=== PATIENT | male | born 1980 | race Asian ===

== ENCOUNTER 2017-10-26 12:32 | Emergency (ER) | payer BC, OTHER ==
[~2017-10-26] VITALS: Ht 177.8 cm; Wt 107.8 kg
[~2017-10-26 12:32] MED LIST: SUBO8MIS SL
[2017-10-26 12:45] VITALS: BP 153/107; PULSE 86; RESP 18; TEMP 98.4; O2SAT 97
[2017-10-26] MEDS ORDERED: HYDR-3516 PO (15:13)
[2017-10-26] MEDS ORDERED: subutex (15:13)
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
== END 2017-10-26 17:07 | disposition home or self-care (01) ==
LOC: PHED 12:32
DX: K40.90 Unilateral inguinal hernia, without obstruction or gangrene, not specified as recurrent (principal); I10 Essential (primary) hypertension; M54.9 Dorsalgia, unspecified; G89.29 Other chronic pain; F17.210 Nicotine dependence, cigarettes, uncomplicated
CPT/HCPCS: 99282

== ENCOUNTER 2017-11-07 16:17 | Emergency (ER) | payer OTHER ==
[~2017-11-07] VITALS: Ht 177.8 cm; Wt 106.0 kg
[~2017-11-07 16:17] MED LIST changes: +HYDR-3516 PO; -SUBO8MIS SL; +subutex
[2017-11-07 16:19] VITALS: BP 195/113; PULSE 93; RESP 18; TEMP 98.3; O2SAT 100
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
[2017-11-07] MEDS ORDERED: CLINDAMYCIN PHOS 900 MG/6 ML VIAL IM ONE (16:45)
[2017-11-07] MEDS ORDERED: CLIN150C14 PO (16:46)
[2017-11-07] MEDS ORDERED: SUBO8MIS SL (16:47)
[2017-11-07] MEDS ORDERED: CLINDAMYCIN PHOS 600 MG/4 ML VIAL IM ONE (17:00)
== END 2017-11-07 18:00 | disposition home or self-care (01) ==
LOC: PHED 16:17
DX: L02.414 Cutaneous abscess of left upper limb (principal); L03.114 Cellulitis of left upper limb; I10 Essential (primary) hypertension; M54.9 Dorsalgia, unspecified; G89.29 Other chronic pain; F11.90 Opioid use, unspecified, uncomplicated; Z72.0 Tobacco use
CPT/HCPCS: 96372

== ENCOUNTER 2018-01-27 18:25 | Emergency (ER) | payer OTHER ==
[~2018-01-27] VITALS: Ht 177.8 cm; Wt 102.0 kg
[~2018-01-27 18:25] MED LIST changes: +CLIN150C14 PO; +SUBO8MIS SL
[2018-01-27 18:43] VITALS: BP 153/90; PULSE 95; RESP 18; TEMP 98.5; O2SAT 97
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
== END 2018-01-27 20:50 | disposition left against medical advice (07) ==
LOC: NEPD 18:25
DX: R44.0 Auditory hallucinations (principal); Z53.29 Procedure and treatment not carried out because of patient's decision for other reasons; I10 Essential (primary) hypertension; F41.9 Anxiety disorder, unspecified; F17.210 Nicotine dependence, cigarettes, uncomplicated; Z79.899 Other long term (current) drug therapy
CPT/HCPCS: 99281

== ENCOUNTER 2018-01-28 | Inpatient (IN) | payer OTHER ==
[~2018-01-28] VITALS: Ht 175.3 cm; Wt 95.6 kg
[2018-01-28] VITALS (15 sets, daily range): BP systolic 123–186; BP diastolic 78–108; PULSE 44–129; RESP 16–31; TEMP 96.8–99; O2SAT 92–100
[2018-01-28] MEDS ORDERED: SODIUM CHLOR 0.9% 1000 ML INJ 1,000 ML IV SCH (00:11)
[2018-01-28] MEDS ORDERED: SODIUM CHLORIDE 0.9% FLUSH 10 ML FLUSH IV FLUSH PRN ×2 (00:15→05:00)
[2018-01-28] MEDS ORDERED: LORazepam 2 MG/ML VIAL IV PUSH ONE ×3 (00:15→08:15)
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
[2018-01-28 00:43] LABS: AUTOMATED NEUTROPHIL # 8.3 TH/MM3 (1.8-7.7); BASOPHIL # 0.1 TH/MM3 (0-0.2); BASOPHIL % 0.5 % (0.0-2.0); EOSINOPHIL # 0.3 TH/MM3 (0-0.4); HEMATOCRIT 38.5 % (39.0-51.0); MEAN CELL VOLUME 68.1 FL (80.0-100.0); MEAN CORPUSCULAR HGB CONC 33.7 % (32.0-36.0); MEAN PLATELET VOLUME 10.5 FL (7.0-11.0); MONO % 6.5 % (0.0-8.0); MONOCYTE # 0.7 TH/MM3 (0-0.9); PLATELET COUNT 231 TH/MM3 (150-450); RED BLOOD COUNT 5.66 MIL/MM3 (4.50-5.90); RED CELL DISTRIBUTION WIDTH 16.3 % (11.6-17.2); WHITE BLOOD COUNT 10.4 TH/MM3 (4.0-11.0)
[2018-01-28 01:00] LABS: ALBUMIN 4.7 GM/DL (3.4-5.0); ALT (GPT) 20 U/L (12-78); AST (GOT) 37 U/L (15-37); BICARBONATE 14.7 MEQ/L (21.0-32.0); BLOOD UREA NITROGEN 17 MG/DL (7-18); CALCIUM 9.2 MG/DL (8.5-10.1); CHLORIDE 105 MEQ/L (98-107); CREATININE 1.94 MG/DL (0.60-1.30); GLOMERULAR FILTRATION RATE 39 ML/MIN (>89); GLUCOSE,RANDOM 84 MG/DL (74-106); MAGNESIUM 4.1 MG/DL (1.5-2.5); SODIUM (NA) 144 MEQ/L (136-145)
--- NOTE | 2018-01-28 01:14 | RADRPT ---
EXAM DATE: 01/28/2018 1:03 AM EDT AGE/SEX: 37 years / Male INDICATIONS: Overdose- Syncope and shortness of breath. CLINICAL DATA: This is the patient's initial encounter. Patient reports that signs and symptoms have been present for 1 day and indicates a pain score of Nonresponsive. MEDICAL/SURGICAL HISTORY: Hypertension. None. COMPARISON: No prior exams available for comparison. FINDINGS: A single AP view of the chest demonstrates the lungs to be symmetrically aerated without evidence of mass, infiltrate or effusion. The cardiomediastinal contours are unremarkable. Osseous structures a re intact. CONCLUSION: No active disease. Electronically signed by: Ari Pelaez MD 01/28/2018 1:13 AM EDT
[2018-01-28 01:15] LABS: ALKALINE PHOSPHATASE 65 U/L (45-117); TROPONIN I LESS THAN 0.02 NG/ML (0.02-0.05)
[2018-01-28] MEDS ORDERED: SODIUM CHLOR 0.9% 1000 ML INJ 1,000 ML IV ONE ×3 (01:15→02:15)
[2018-01-28 01:19] LABS: INTERNATIONAL NORMALIZED RATIO 1.1 RATIO
[2018-01-28 01:30] LABS: ACETAMINOPHEN LESS THAN 2.0 MCG/ML (10.0-30.0)
[2018-01-28 03:34] LABS: BICARBONATE 18.7 MEQ/L (21.0-32.0); CALCIUM 8.3 MG/DL (8.5-10.1); CREATININE 1.5 MG/DL (0.60-1.30)
--- NOTE | 2018-01-28 04:15 | RADRPT ---
EXAM DATE: 01/28/2018 3:53 AM EDT AGE/SEX: 37 years / Male INDICATIONS: Altered mental status. Possible overdose. CLINICAL DATA: This is the patient's initial encounter. Patient reports that signs and symptoms have been present for 1 day and indicates a pain score of Nonresponsive. MEDICAL/SURGICAL HISTORY: Hypertension. Substance abuse. None. RADIATION DOSE: 56.35 CTDI (mGy) COMPARISON: [facility], CT BRAIN W/O CONTRAST, 12/17/2011. . TECHNIQUE: CT of the head without contrast. Using automated exposure control and adjustment of the mA and/or kV according to patient size, radiation dose was kept as low as reasonably achievable to ob tain optimal diagnostic quality images. FINDINGS: Cerebrum: The ventricles are normal for age. No evidence of midline shift, mass lesion, hemorrhage or acute infarction. No extraaxial fluid collections are seen. Posterior Fossa: The cerebellum and brainstem are intact. The 4th ventricle is midline. The cerebe llopontine angle is unremarkable. Extracranial: The visualized portion of the orbits is intact. Skull: The calvaria is intact. No evidence of skull fracture. CONCLUSION: 1. No acute intracranial abnormalities. Electronically signed by: Ari Pelaez MD 01/28/2018 4:13 AM EDT
[2018-01-28 04:43] LABS: BACTERIA, URINE OCC /hpf; BILIRUBIN, URINE NEG (NEG); BLOOD, URINE LARGE (NEG); GLUCOSE,URINE NEG (NEG); HYALINE CAST, URINE 9 /lpf (RARE); KETONE, URINE 10 mg/dL (NEG); MUCUS URINE FEW /lpf (OCC); NITRITE,URINE NEG (NEG); SQUAMOUS EPITHELIAL CELL URINE 1 /hpf (0-5); URINE COLOR RED (YELLW/STRAW); URINE LEUKOCYTE ESTERASE NEG (NEG)
[2018-01-28] MEDS: SODIUM CHLOR 0.9% 1000 ML INJ 1,000 ML IV SCH ×4 (04:47→21:00)
--- NOTE | 2018-01-28 04:58 | HHI.HP ---
HPI Service Critical Care Medicine Primary Care Physician Unknown Admission Diagnosis psychosis; metabolic/lactic acidosis; rhabdomyolysis; BA Diagnosis: Travel History International Travel<30 Days: No Contact w/Intl Traveler <30 Da: No Traveled to Known Affected Are: No History of Present Illness 37-year-old male presents in restraints and after receiving IM ketamine for altered mental status with aggressive behavior. Patient was found by EMS and his home with handcuffs in place agitated and yelling. Patient admitted to substance use but would not specify what he ingested. EMS reports patient was seen in the emergency department earlier in the day. On review of medical records patient was being seen at his family's recommendation for auditory hallucinations. At that time of initial evaluation patient had refused workup with imaging studies and lab work and had reported he had had no suicidal or homicidal ideation therefore was released in the care of his mother. At this time patient is unable to provide any meaningful information. Review of Systems ROS Unable to obtain due to patient's mental status Past Family Social History Allergies: Coded Allergies: No Known Allergies (Verified Adverse Reaction, Unknown, 01/27/18) Past Medical History Cellulitis Past Surgical History Unobtainable Reported Medications Reported Meds & Active Scripts Active Clindamycin (Clindamycin HCl) 150 Mg Cap 300 Mg PO TID 10 Days Reported Suboxone Sublingual Film (Buprenorphine-Naloxone Sublingual Film) 8-2 Mg Film 1 Film SL DAILY Unique ID number required: Hydrocodone-Acetaminophen 5-325 mg Tab 1 Tab PO Q4H PRN [subutex] Active Ordered Medications Current Medications Medications (Trade) Dose Ordered Sig/Bernardino Route PRN Reason Start Time Stop Time Status Last Admin Dose Admin Sodium Chloride (NS Flush) 2 ml UNSCH PRN IV FLUSH FLUSH AFTER USING IV ACCESS 01/28/18 00:15 Sodium Chloride 1,000 ml @ 84 mls/hr [id number] IV 01/28/18 04:47 UNV Sodium Chloride (NS Flush) 2 ml UNSCH PRN IV FLUSH FLUSH AFTER USING IV ACCESS 01/28/18 05:00 UNV Sodium Chloride (NS Flush) 2 ml BID IV FLUSH 01/28/18 09:00 UNV Acetaminophen (Tylenol) 650 mg Q6H PRN PO PAIN 1-5 AND/OR FEVER >101F 01/28/18 05:00 UNV Hydromorphone HCl (Dilaudid Pf Inj) 1 mg Q4H PRN IV PUSH PAIN SCALE 6 TO 10 01/28/18 05:00 UNV Famotidine (Pepcid Inj) 20 mg Q12HR IV PUSH 01/28/18 09:00 UNV Lorazepam (Ativan Inj) 1 mg Q1H PRN IV PUSH Agitation/Sedation 01/28/18 05:00 UNV Ondansetron HCl (Zofran Inj) 4 mg Q6H PRN IV PUSH NAUSEA OR VOMITING 01/28/18 05:00 UNV Temazepam (Restoril) 15 mg HS PRN PO INSOMNIA 01/28/18 05:00 UNV Albuterol/ Ipratropium (Duoneb Neb) 1 ampule Q2HR NEB PRN INH WHEEZING 01/28/18 05:00 UNV Enoxaparin Sodium (Lovenox Inj) 40 mg Q24H SQ 01/28/18 05:00 UNV Miscellaneous Information ([facility] [place] [facility]) 1 Q361D XX 01/28/18 05:00 UNV Chlorhexidine Gluconate (Chlorhexidine 2% Cloth) 3 pack Taper DAILY@04 TOP 01/29/18 04:00 01/25/19 03:59 UNV Chlorhexidine Gluconate (Chlorhexidine 2% Cloth) 3 pack UNSCH PRN TOP HYGIENIC CARE 01/28/18 05:00 UNV Senna/Docusate Sodium (Dariana-Colace) 1 tab BID PO 01/28/18 09:00 UNV Magnesium Hydroxide (Milk Of Magnesia Liq) 30 ml Q12H PRN PO Mild constipation 01/28/18 05:00 UNV Sennosides (Senokot) 17.2 mg Q12H PRN PO Moderate constipation 01/28/18 05:00 UNV Bisacodyl (Dulcolax Supp) 10 mg DAILY PRN RECTAL SEVERE CONSITIPATION 01/28/18 05:00 UNV Lactulose (Lactulose Liq) 30 ml DAILY PRN PO SEVERE CONSITIPATION 01/28/18 05:00 UNV Family History Unobtainable Social History Unobtainable Physical Exam Vital Signs Vital Signs Date Time Temp Pulse Resp B/P (MAP) Pulse Ox O2 Delivery O2 Flow Rate FiO2 01/28/18 04:31 60 20 153/78 (103) 99 Room Air 01/28/18 03:00 21 01/28/18 00:11 129 26 98 Nasal Cannula 01/28/18 00:06 99.0 129 22 154/97 (116) 98 Physical Exam GENERAL: Well-developed well-nourished male awake follows commands SKIN: Warm and dry. HEAD: Normocephalic. EYES: No scleral icterus. No injection or drainage. NECK: Supple, trachea midline. No JVD or lymphadenopathy. CARDIOVASCULAR: increased Regular rate and rhythm without murmurs, gallops, or rubs. RESPIRATORY: Breath sounds equal bilaterally. No accessory muscle use. GASTROINTESTINAL: Abdomen soft, non-tender, nondistended. MUSCULOSKELETAL: No cyanosis, or edema. BACK: Nontender without obvious deformity. No CVA tenderness. NEURO: GSC 13 Laboratory Laboratory Tests Test 01/28/18 00:25 01/28/18 00:27 01/28/18 02:40 01/28/18 02:51 White Blood Count 10.4 Red Blood Count 5.66 Hemoglobin 13.0 Hematocrit 38.5 Mean Corpuscular Volume 68.1 Mean Corpuscular Hemoglobin 23.0 Mean Corpuscular Hemoglobin Concent 33.7 Red Cell Distribution Width 16.3 Platelet Count 231 Mean Platelet Volume 10.5 Neutrophils (%) (Auto) 80.0 Lymphocytes (%) (Auto) 10.0 Monocytes (%) (Auto) 6.5 Eosinophils (%) (Auto) 3.0 Basophils (%) (Auto) 0.5 Neutrophils # (Auto) 8.3 Lymphocytes # (Auto) 1.0 Monocytes # (Auto) 0.7 Eosinophils # (Auto) 0.3 Basophils # (Auto) 0.1 CBC Comment DIFF FINAL Differential Comment Prothrombin Time 11.0 Prothromb Time International Ratio 1.1 Activated Partial Thromboplast Time 24.0 Blood Urea Nitrogen 17 19 Creatinine 1.94 1.50 Random Glucose 84 88 Total Protein 9.0 Albumin 4.7 Calcium Level 9.2 8.3 Magnesium Level 4.1 Alkaline Phosphatase 65 Aspartate Amino Transf (AST/SGOT) 37 Alanine Aminotransferase (ALT/SGPT) 20 Total Bilirubin 2.0 Sodium Level 144 145 Potassium Level 4.5 4.1 Chloride Level 105 113 Carbon Dioxide Level 14.7 18.7 Anion Gap 24 13 Estimat Glomerular Filtration Rate 39 53 Total Creatine Kinase 2873 Creatine Kinase MB 2.2 Creatine Kinase MB % 0.1 Troponin I LESS THAN 0.02 Thyroid Stimulating Hormone 3rd Gen 1.080 Salicylates Level LESS THAN 1.7 Acetaminophen Level LESS THAN 2.0 Ethyl Alcohol Level LESS THAN 3 Lactic Acid Level 11.6 2.0 Ammonia 108 Venous Blood pH 7.29 Test 01/28/18 04:10 Urine Color RED Urine Turbidity HAZY Urine pH 6.0 Urine Specific [place] 1.009 Urine Protein 100 Urine Glucose (UA) NEG Urine Ketones 10 Urine Occult Blood LARGE Urine Nitrite NEG Urine Bilirubin NEG Urine Urobilinogen LESS THAN 2.0 Urine Leukocyte Esterase NEG Urine RBC 1 Urine WBC 6 Urine Squamous Epithelial Cells 1 Urine Bacteria OCC Urine Hyaline Casts 9 Urine Mucus FEW Microscopic Urinalysis Comment CATH-CULTURE IND Date/Time Source Procedure Growth Status 01/28/18 04:10 Urine Catheterized Urine Urine Culture Pending Received Result Diagram: 01/28/18 0025 01/28/18 0251 Imaging Last [address] 01/28/18 0011 Signed Impressions: CONCLUSION: 1. No acute intracranial abnormalities. Chest X-Ray 01/28/18 001 Signed Impressions: CONCLUSION: No active disease. Caprini VTE Risk Assessment Caprini VTE Risk Assessment: No/Low Risk (score <= 1) Caprini Risk Assessment Model Point Value = 1 Point Value = 2 Point Value = 3 Point Value = 5 Age 41-60 Minor surgery BMI > 25 kg/m2 Swollen legs Varicose veins or History of unexplained or recurrent spontaneous Oral contraceptives or hormone replacement Sepsis (< 1 month) Serious lung disease, including pneumonia (< 1 month) Abnormal pulmonary function Acute myocardial infarction Congestive heart failure (< 1 month) History of inflammatory bowel disease Medical patient at bed rest Age 61-74 Arthroscopic surgery Major open surgery (> 45 min) Laparoscopic surgery (> 45 min) Malignancy Confined to bed (> 72 hours) Immobilizing plaster cast Central venous access Age >= 75 History of VTE Family history of VTE Factor V Leiden Prothrombin [id number] Lupus anticoagulant Anticardiolipin antibodies Elevated serum homocysteine Heparin-induced thrombocytopenia Other congenital or acquired thrombophilia Stroke (< 1 month) Elective arthroplasty Hip, pelvis, or leg fracture Acute spinal cord injury (< 1 month) Prophylaxis Regimen Total Risk Factor Score Risk Level Prophylaxis Regimen 0-1 Low Early ambulation 2 Moderate Order ONE of the following: *Sequential Compression Device (SCD) *Heparin 5000 units SQ BID 3-4 Higher Order ONE of the following medications: *Heparin 5000 units SQ TID *Enoxaparin/Lovenox 40 mg SQ daily (WT < 150 kg, CrCl > 30 mL/min) *Enoxaparin/Lovenox 30 mg SQ daily (WT < 150 kg, CrCl > 10-29 mL/min) *Enoxaparin/Lovenox 30 mg SQ BID (WT < 150 kg, CrCl > 30 mL/min) AND/OR *Sequential Compression Device (SCD) 5 or more Highest Order ONE of the following medications: *Heparin 5000 units SQ TID (Preferred with Epidurals) *Enoxaparin/Lovenox 40 mg SQ daily (WT < 150 kg, CrCl > 30 mL/min) *Enoxaparin/Lovenox 30 mg SQ daily (WT < 150 kg, CrCl > 10-29 mL/min) *Enoxaparin/Lovenox 30 mg SQ BID (WT < 150 kg, CrCl > 30 mL/min) AND *Sequential Compression Device (SCD) Assessment and Plan Assessment and Plan Altered mental status -Psychosis? -Cocaine intoxication -Benzos as needed -CT head negative -Previous visit due to hallucinations -will consult psychiatry Rhabdomyolysis -Due to cocaine intoxication -Aggressive IV fluid hydration -Monitor CPK trend Acute kidney injury -Due to above -Improving -Continue IV fluid hydration Lactic acidosis -Resolved DVT GI prophylaxis -Raj's and SCDs -Early aggressive mobilization -Pepcid Critical Care: The total critical care time was 35 minutes. Time to perform other separately billable procedures was not included in the critical care time. Miguel A Silver MD Jan 28, 2018 4:58 am
[2018-01-28] MEDS ORDERED: TEMAZEPAM 15 MG CAP PO PRN (05:00)
[2018-01-28] MEDS ORDERED: RESP: ALBUTEROL 2.5 MG/IPRATROPIUM 0.5 MG NEB (PRN) INH (05:00)
[2018-01-28] MEDS ORDERED: LACTULOSE SYRUP 20 GM/30 ML CUP PO PRN (05:00)
[2018-01-28] MEDS ORDERED: DEXMEDETOMIDINE INJ 200 MCG in SODIUM CHLORIDE 0.9% INJ 50 ML IV PRN (05:00)
[2018-01-28] MEDS ORDERED: CHLORHEXIDINE GLUCONATE 2 % 1 PACK (2 CLOTHS) TOP PRN (05:00)
[2018-01-28] MEDS ORDERED: NURSING INFORMATION XX SCH (05:00)
[2018-01-28] MEDS ORDERED: BISACODYL 10 MG SUPP RECTAL PRN (05:00)
[2018-01-28] MEDS ORDERED: MAGNESIUM HYDROXIDE SUSP 30 ML CUP PO PRN (05:00)
[2018-01-28] MEDS ORDERED: HYDROmorphone HCL PF 0.5 MG/0.5 ML SYRINGE IV PUSH PRN (05:00)
[2018-01-28] MEDS ORDERED: ACETAMINOPHEN 325 MG TAB PO PRN (05:00)
[2018-01-28] MEDS ORDERED: LORazepam 2 MG/ML VIAL IV PUSH PRN ×2 (05:00→09:00)
[2018-01-28] MEDS ORDERED: SENNOSIDES 8.6 MG TAB PO PRN (05:00)
[2018-01-28] MEDS ORDERED: MORPHINE SULFATE 4 MG/ML INJ ONE ×2 (08:12→08:14)
[2018-01-28] MEDS ORDERED: ZIPRASIDONE MESYLATE 20 MG VIAL IM STA (08:19)
[2018-01-28] MEDS: DOCUSATE SODIUM 50 MG/SENNA 8.6 MG TAB PO SCH ×2 (09:00→20:06)
[2018-01-28] MEDS: ENOXAPARIN SODIUM 40 MG/0.4 ML SYRINGE SQ SCH (09:49)
[2018-01-28] MEDS: SODIUM CHLORIDE 0.9% FLUSH 10 ML FLUSH IV FLUSH SCH ×2 (09:49→20:05)
[2018-01-28] MEDS: FAMOTIDINE 20 MG/2 ML VIAL IV PUSH SCH ×2 (09:49→20:06)
--- NOTE | 2018-01-28 14:45 | EKG ---
Date Performed: 01/28/2018 Time Performed: 00:18:37 PTAGE: 37 years EKG: SINUS TACHYCARDIA NONSPECIFIC ST & T-WAVE ABNORMALITY ABNORMAL RHYTHM ECG Heavy baseline ar tifact present. NO PREVIOUS TRACING DOCTOR: Burt Blanc Interpretating Date/Time 01/28/2018 14:43:51
[2018-01-28] MEDS ORDERED: ENALAPRILAT 2.5 MG/2 ML VIAL IV PUSH PRN (15:00)
[2018-01-28] MEDS ORDERED: cloNIDine HCL 0.1 MG/24 HR PATCH T-DERMAL ONE (15:00)
--- NOTE | 2018-01-28 16:44 | PD.PSY.CON ---
Provisional Diagnosis Admission Date Jan 28, 2018 at 04:21 [place] I. unspecified psychosis, R/O substance induced psychosis, polysubstance dependance including opiates, cocaine and benzodiazepines [place] II. deferred [place] III. HTN History of Present Illness Service Psychiatry Consult Requested By Medicine Reason for Consult psychosis Primary Care Physician Unknown HPI The patient is a 37-year-old man, domiciled with his mother in [place], single, employed, with psychiatric history of polysubstance dependence including opiates, cocaine, benzodiazepines, multiple detox/rehab in the past, but no psychiatric hospitalizations, no suicide attempts, multiple ER visits with drug related problems, who presented in restraints and after receiving IM ketamine for altered mental status with aggressive behavior. Patient was found by EMS and his home with handcuffs in place agitated and yelling. Patient admitted to substance use but would not specify what he ingested. EMS reports patient was seen in the emergency department earlier in the day. On review of medical records patient was being seen at his family's recommendation for auditory hallucinations. Admitted due to altered mental status. Cocaine intoxication. Benzos as needed. CT head negative. He also has rhabdomyolysis, Acute kidney injury. On psychiatric evaluation today the patient is noncooperative, restrained in 4 points, very sedated. The patient was recently given Geodon 10 mg with Ativan 4 mg due to his aggressiveness. However, I got collateral information from his mother Fredrick Mondragon, , who clarifies that the patient does not have any previous psychiatric illness other than he is multidrug use disorder. He described the patient is a nonviolent person. She says that he is not usually aggressive, "this is out of character for him". She says that he recently found a new job and he was doing fine. She admits the patient uses multiple drugs including Xanax, cocaine and he is on Suboxone, but she does not know if the Suboxone is legal or not. She had never tried to commit suicide in the past. There is no family history of psychiatric problems. Review of Systems ROS Limitations: Unresponsive, Uncooperative Past Family Social History Coded Allergies: No Known Allergies (Verified Allergy, Unknown, 01/28/18) Active Scripts Clindamycin (Clindamycin) 150 Mg Cap, 300 MG PO TID for Infection for 10 Days, # 60 CAP 0 Refills Prov:Yonny Kelsey MD 11/07/17 Reported Medications Buprenorphine-Naloxone Sublingual Film (Suboxone Sublingual Film) 8-2 Mg Film, 1 FILM SL DAILY, FILM Unique ID number required: 11/07/17 Hydrocodone-Acetaminophen (Hydrocodone-Acetaminophen) 5-325 mg Tab, 1 TAB PO Q4H Y for PAIN, TAB 0 Refills 10/26/17 [subutex] No Conflict Check 10/26/17 Current Medications Medications (Trade) Dose Ordered Sig/Bernardino Route Start Time Stop Time Status Last Admin Sodium Chloride 1,000 ml @ 154 mls/hr Q6H30M IV 01/28/18 04:47 01/28/18 12:32 (NS Flush) 2 ml UNSCH PRN IV FLUSH 01/28/18 05:00 (NS Flush) 2 ml BID IV FLUSH 01/28/18 09:00 01/28/18 09:49 (Tylenol) 650 mg Q6H PRN PO 01/28/18 05:00 (Dilaudid Pf Inj) 1 mg Q4H PRN IV PUSH 01/28/18 05:00 (Pepcid Inj) 20 mg Q12HR IV PUSH 01/28/18 09:00 01/28/18 09:49 (Zofran Odt) 4 mg Q6H PRN PO 01/28/18 05:15 (Restoril) 15 mg HS PRN PO 01/28/18 05:00 (Duoneb Neb) 1 ampule Q2HR NEB PRN INH 01/28/18 05:00 (Lovenox Inj) 40 mg Q24H SQ 01/28/18 09:00 01/28/18 09:49 [place] [place] [facility] [place] 1 Q361D XX 01/28/18 05:00 (Chlorhexidine 2% Cloth) 3 pack Taper DAILY@04 TOP 01/29/18 04:00 01/25/19 03:59 (Chlorhexidine 2% Cloth) 3 pack UNSCH PRN TOP 01/28/18 05:00 (Dariana-Colace) 1 tab BID PO 01/28/18 09:00 (Milk Of Magnesia Liq) 30 ml Q12H PRN PO 01/28/18 05:00 (Senokot) 17.2 mg Q12H PRN PO 01/28/18 05:00 (Dulcolax Supp) 10 mg DAILY PRN RECTAL 01/28/18 05:00 (Lactulose Liq) 30 ml DAILY PRN PO 01/28/18 05:00 Dexmedetomidine HCl 200 mcg/ Sodium Chloride 52 ml @ 4.05 mls/hr TITRATE PRN IV 01/28/18 05:00 01/28/18 12:33 (Ativan Inj) 2 mg Q1H PRN IV PUSH 01/28/18 09:00 (Vasotec Inj) 2.5 mg Q6H PRN IV PUSH 01/28/18 15:00 01/28/18 14:56 Family Psych History No family psychiatric Social History Patient was born and raised in [place], he lives with his mother in [place] , single, employed, his highest level of education is some college Patient's Strengths (min. 2) Support of his mother Physical Exam Restrained, unresponsive Vital Signs Vital Signs Date Time Temp Pulse Resp B/P (MAP) Pulse Ox O2 Delivery O2 Flow Rate FiO2 01/28/18 16:00 70 01/28/18 11:00 98.0 23 150/96 (114) 95 01/28/18 04:31 Room Air 01/28/18 03:00 21 I/O 01/28/18 01/28/18 01/29/18 08:00 16:00 00:00 Intake Total 4000 ml Output Total 1000 ml Balance 3000 ml Lab Results Test 01/28/18 00:25 01/28/18 00:27 01/28/18 02:40 01/28/18 02:51 White Blood Count 10.4 TH/MM3 Red Blood Count 5.66 MIL/MM3 Hemoglobin 13.0 GM/DL Hematocrit 38.5 % Mean Corpuscular Volume 68.1 FL Mean Corpuscular Hemoglobin 23.0 PG Mean Corpuscular Hemoglobin Concent 33.7 % Red Cell Distribution Width 16.3 % Platelet Count 231 TH/MM3 Mean Platelet Volume 10.5 FL Neutrophils (%) (Auto) 80.0 % Lymphocytes (%) (Auto) 10.0 % Monocytes (%) (Auto) 6.5 % Eosinophils (%) (Auto) 3.0 % Basophils (%) (Auto) 0.5 % Neutrophils # (Auto) 8.3 TH/MM3 Lymphocytes # (Auto) 1.0 TH/MM3 Monocytes # (Auto) 0.7 TH/MM3 Eosinophils # (Auto) 0.3 TH/MM3 Basophils # (Auto) 0.1 TH/MM3 CBC Comment DIFF FINAL Differential Comment Prothrombin Time 11.0 SEC Prothromb Time International Ratio 1.1 RATIO Activated Partial Thromboplast Time 24.0 SEC Blood Urea Nitrogen 17 MG/DL 19 MG/DL Creatinine 1.94 MG/DL 1.50 MG/DL Random Glucose 84 MG/DL 88 MG/DL Total Protein 9.0 GM/DL Albumin 4.7 GM/DL Calcium Level 9.2 MG/DL 8.3 MG/DL Magnesium Level 4.1 MG/DL Alkaline Phosphatase 65 U/L Aspartate Amino Transf (AST/SGOT) 37 U/L Alanine Aminotransferase (ALT/SGPT) 20 U/L Total Bilirubin 2.0 MG/DL Sodium Level 144 MEQ/L 145 MEQ/L Potassium Level 4.5 MEQ/L 4.1 MEQ/L Chloride Level 105 MEQ/L 113 MEQ/L Carbon Dioxide Level 14.7 MEQ/L 18.7 MEQ/L Anion Gap 24 MEQ/L 13 MEQ/L Estimat Glomerular Filtration Rate 39 ML/MIN 53 ML/MIN Total Creatine Kinase 2873 U/L Creatine Kinase MB 2.2 NG/ML Creatine Kinase MB % 0.1 % Troponin I LESS THAN 0.02 NG/ML Thyroid Stimulating Hormone 3rd Gen 1.080 uIU/ML Salicylates Level LESS THAN 1.7 MG/DL Acetaminophen Level LESS THAN 2.0 MCG/ML Ethyl Alcohol Level LESS THAN 3 MG/DL Lactic Acid Level 11.6 mmol/L 2.0 mmol/L Ammonia 108 MCMOL/L Venous Blood pH 7.29 Test 01/28/18 04:10 01/28/18 13:06 Urine Color RED Urine Turbidity HAZY Urine pH 6.0 Urine Specific [place] 1.009 Urine Protein 100 mg/dL Urine Glucose (UA) NEG mg/dL Urine Ketones 10 mg/dL Urine Occult Blood LARGE Urine Nitrite NEG Urine Bilirubin NEG Urine Urobilinogen LESS THAN 2.0 MG/DL Urine Leukocyte Esterase NEG Urine RBC 1 /hpf Urine WBC 6 /hpf Urine Squamous Epithelial Cells 1 /hpf Urine Bacteria OCC /hpf Urine Hyaline Casts 9 /lpf Urine Mucus FEW /lpf Microscopic Urinalysis Comment CATH-CULTURE IND Urine Opiates Screen NEG Urine Barbiturates Screen NEG Urine Amphetamines Screen NEG Urine Benzodiazepines Screen POS Urine Cocaine Screen POS Urine Cannabinoids Screen NEG Total Creatine Kinase 91002 U/L Creatine Kinase MB 18.2 NG/ML Creatine Kinase MB % 0.0 % Date/Time Source Procedure Growth Status 01/28/18 13:06 Blood Peripheral Aerobic Blood Culture Pending Received 01/28/18 13:06 Blood Peripheral Anaerobic Blood Culture Pending Received 01/28/18 04:10 Urine Catheterized Urine Urine Culture Pending Received Mental Status Examination Appearance: Disheveled, Other (Restrained in four-point) Mental Status Exam Remarks Limited due to the level of sedation Assessment & Plan Problem List: (1) Unspecified psychosis ICD Codes: F29 - Unspecified psychosis not due to a substance or known physiological condition Assessment & Plan: Given his level of psychosis and aggressive behavior patient will be started in Haldol 2 mg twice daily. Haldol 5 mg IM/IV every 8 hours as needed aggressive behavior and agitation. Continue CIWA protocol. QTC is 439. The patient does not have a previous psychiatric history. He does not have any prior psychiatric hospitalization. No previous suicide attempts. It seems to me that current presentation is secondary to multidrug intoxication. However, if psychosis persist patient might benefit of psychiatric admission for stabilization and safety. We will follow-up. Assessment & Plan Estimated LOS: Alberto Watt MD Jan 28, 2018 16:44
[2018-01-28] MEDS ORDERED: HALOPERIDOL LACTATE 5 MG/ML AMP IM PRN (16:45)
[2018-01-28] MEDS ORDERED: HALOPERIDOL 2 MG TAB PO SCH (21:00)
[2018-01-29] VITALS (13 sets, daily range): BP systolic 124–142; BP diastolic 67–88; PULSE 50–89; RESP 16–20; TEMP 97.7–99; O2SAT 95–100
[2018-01-29] MEDS: CHLORHEXIDINE GLUCONATE 2 % 1 PACK (2 CLOTHS) TOP SCH (03:15)
[2018-01-29] MEDS: SODIUM CHLOR 0.9% 1000 ML INJ 1,000 ML IV SCH (03:59)
[2018-01-29 04:38] LABS: AUTOMATED NEUTROPHIL # 4.9 TH/MM3 (1.8-7.7); BASOPHIL % 0.4 % (0.0-2.0); EOSINOPHIL # 0.2 TH/MM3 (0-0.4); EOSINOPHIL % 3.1 % (0.0-4.0); HEMOGLOBIN 13.9 GM/DL (13.0-17.0); LYMPH % 19.5 % (9.0-44.0); LYMPHOCYTE # 1.4 TH/MM3 (1.0-4.8); MEAN CELL VOLUME 69.9 FL (80.0-100.0); MEAN CORPUSCULAR HEMOGLOBIN 22.1 PG (27.0-34.0); MEAN CORPUSCULAR HGB CONC 31.6 % (32.0-36.0); MEAN PLATELET VOLUME 12.1 FL (7.0-11.0); MONOCYTE # 0.6 TH/MM3 (0-0.9); PLATELET COUNT 184 TH/MM3 (150-450); RED BLOOD COUNT 6.29 MIL/MM3 (4.50-5.90); RED CELL DISTRIBUTION WIDTH 16.9 % (11.6-17.2); WHITE BLOOD COUNT 7.2 TH/MM3 (4.0-11.0)
[2018-01-29 04:58] LABS: ALBUMIN 2.9 GM/DL (3.4-5.0); ALKALINE PHOSPHATASE 54 U/L (45-117); ALT (GPT) 118 U/L (12-78); AST (GOT) 615 U/L (15-37); BLOOD UREA NITROGEN 20 MG/DL (7-18); CALCIUM 8.1 MG/DL (8.5-10.1); CHLORIDE 119 MEQ/L (98-107); GLOMERULAR FILTRATION RATE 57 ML/MIN (>89); MAGNESIUM 2.6 MG/DL (1.5-2.5); SODIUM (NA) 145 MEQ/L (136-145); TOTAL BILIRUBIN ADULT 1.3 MG/DL (0.2-1.0)
[2018-01-29 05:02] LABS: GLUCOSE,RANDOM 49 MG/DL (74-106)
[2018-01-29] MEDS ORDERED: DEXTROSE 50% IN WATER 50 ML VIAL(D50) IV PUSH PRN (05:15)
[2018-01-29] MEDS ORDERED: GLUCAGON 1 MG/ML VIAL OTHER PRN (05:15)
[2018-01-29] MEDS ORDERED: SODIUM BICARBONATE 8.4% INJ 150 MEQ in DEXTROSE 5% IN WATE 1000ML INJ 1,000 ML IV SCH ×2 (06:45)
[2018-01-29] MEDS: ENOXAPARIN SODIUM 40 MG/0.4 ML SYRINGE SQ SCH (08:13)
[2018-01-29] MEDS: DOCUSATE SODIUM 50 MG/SENNA 8.6 MG TAB PO SCH ×2 (08:13→21:00)
[2018-01-29] MEDS: FAMOTIDINE 20 MG/2 ML VIAL IV PUSH SCH ×2 (08:13→22:14)
[2018-01-29] MEDS: SODIUM CHLORIDE 0.9% FLUSH 10 ML FLUSH IV FLUSH SCH ×2 (08:14→22:15)
--- NOTE | 2018-01-29 09:50 | HHI.PR ---
Subjective Remarks less agitated than yesterday. hungry and asking for food. Objective Vitals heart reg lung cta abd s/nt ext areas of lower ext bruising and excoriated skin he is in 2 sets of 4point restraint Vital Signs Date Time Temp Pulse Resp B/P (MAP) Pulse Ox O2 Delivery O2 Flow Rate FiO2 01/29/18 08:00 61 01/29/18 08:00 97.7 59 20 131/83 (99) 100 01/29/18 06:00 50 01/29/18 04:00 56 01/29/18 04:00 99.0 89 18 134/88 (103) 99 01/29/18 02:00 50 01/29/18 00:00 98.1 58 16 124/81 (95) 100 01/29/18 00:00 56 01/28/18 22:00 60 01/28/18 20:29 94 01/28/18 20:00 47 01/28/18 20:00 99.0 55 19 130/85 (100) 100 01/28/18 19:00 47 16 123/82 (96) 100 01/28/18 18:00 47 01/28/18 16:00 70 01/28/18 15:00 96.8 47 22 166/99 (121) 92 01/28/18 15:00 45 01/28/18 14:00 44 01/28/18 12:00 46 01/28/18 11:00 98.0 50 23 150/96 (114) 95 01/28/18 10:00 59 Result Diagram: 01/29/18 0333 01/29/18 0333 A/P Problem List: (1) Acute psychosis ICD Codes: F23 - Brief psychotic disorder Status: Acute Plan: 1. acute psychosis. no hx mental illness reported. hx polysubstance abuse taking cocaine/benzos and "suboxone" Pt severely agitated and fighting with police and hospital staff on admission Was restrained and sedated Severe Rhabdomyolysis elevated cr and lft due to rhabdo. psychiatry following off precedex gtt on ivf with bicarb gtt. monitor ck/cr prn ativan ordered removed restraints and will observe diet ordered. (2) Polysubstance abuse ICD Codes: F19.10 - Other psychoactive substance abuse, uncomplicated Status: Acute (3) Rhabdomyolysis ICD Codes: M62.82 - Rhabdomyolysis Status: Acute (4) Cocaine abuse ICD Codes: F14.10 - Cocaine abuse, uncomplicated Status: Acute Gaetano Sullivan MD Jan 29, 2018 09:50
[2018-01-29] MEDS: SODIUM BICARBONATE 8.4% INJ 150 MEQ in DEXTROSE 5% IN WATE 1000ML INJ 1,000 ML IV SCH ×6 (12:26→22:15)
[2018-01-30] VITALS (13 sets, daily range): BP systolic 137–169; BP diastolic 80–107; PULSE 50–70; RESP 15–21; TEMP 98.2–98.6; O2SAT 94–99
[2018-01-30] MEDS: CHLORHEXIDINE GLUCONATE 2 % 1 PACK (2 CLOTHS) TOP SCH (04:00)
[2018-01-30] MEDS: SODIUM BICARBONATE 8.4% INJ 150 MEQ in DEXTROSE 5% IN WATE 1000ML INJ 1,000 ML IV SCH ×2 (05:45)
[2018-01-30] MEDS: DOCUSATE SODIUM 50 MG/SENNA 8.6 MG TAB PO SCH ×2 (08:30→21:00)
[2018-01-30] MEDS: ENOXAPARIN SODIUM 40 MG/0.4 ML SYRINGE SQ SCH (08:30)
[2018-01-30] MEDS: SODIUM CHLORIDE 0.9% FLUSH 10 ML FLUSH IV FLUSH SCH ×2 (08:31→21:00)
[2018-01-30] MEDS: FAMOTIDINE 20 MG/2 ML VIAL IV PUSH SCH (08:31)
--- NOTE | 2018-01-30 09:48 | HHI.PR ---
Subjective Remarks denies muscle pain. was oob yesterday off restraints. ate ok yesterday. Objective Vitals heart reg lung cta abd s/nt ext mild edema hands/feet abrasions and bruising lower ext. randhawa Vital Signs Date Time Temp Pulse Resp B/P (MAP) Pulse Ox O2 Delivery O2 Flow Rate FiO2 01/30/18 07:25 94 21 01/30/18 06:00 50 01/30/18 04:00 61 01/30/18 04:00 98.4 61 15 137/80 (99) 96 01/30/18 02:00 64 01/30/18 00:00 98.6 70 19 148/84 (105) 96 01/30/18 00:00 70 01/29/18 22:00 75 01/29/18 20:00 98.0 85 20 133/67 (89) 95 01/29/18 20:00 85 01/29/18 18:00 74 01/29/18 16:00 88 01/29/18 16:00 98.2 88 18 127/86 (100) 100 01/29/18 14:00 73 01/29/18 12:00 77 01/29/18 12:00 98.0 77 16 142/87 (105) 100 01/29/18 10:00 83 Result Diagram: 01/29/18 0333 01/29/18 0333 A/P Problem List: (1) Acute psychosis ICD Codes: F23 - Brief psychotic disorder Status: Acute Plan: 1. acute psychosis. no hx mental illness reported. hx polysubstance abuse taking cocaine/benzos and "suboxone" Pt severely agitated and fighting with police and hospital staff on admission Was restrained and sedated Severe Rhabdomyolysis elevated cr and lft due to rhabdo. psychiatry following off precedex gtt on ivf with bicarb gtt. monitor ck/cr. convert to NS prn ativan ordered removed restraints and will observe diet ordered. labwork for today still pending. will decide on randhawa removal once available. oob/PT (2) Polysubstance abuse ICD Codes: F19.10 - Other psychoactive substance abuse, uncomplicated Status: Acute (3) Rhabdomyolysis ICD Codes: M62.82 - Rhabdomyolysis Status: Acute (4) Cocaine abuse ICD Codes: F14.10 - Cocaine abuse, uncomplicated Status: Acute Gaetano Sullivan MD Jan 30, 2018 09:47
[2018-01-30] MEDS: SODIUM CHLOR 0.9% 1000 ML INJ 1,000 ML IV SCH ×2 (10:30→19:41)
[2018-01-30 15:56] LABS: AUTOMATED NEUTROPHIL # 7.2 TH/MM3 (1.8-7.7); BASOPHIL % 0.2 % (0.0-2.0); EOSINOPHIL # 0.1 TH/MM3 (0-0.4); EOSINOPHIL % 1.6 % (0.0-4.0); HEMOGLOBIN 11.9 GM/DL (13.0-17.0); LYMPH % 16.5 % (9.0-44.0); LYMPHOCYTE # 1.6 TH/MM3 (1.0-4.8); MEAN CELL VOLUME 68.5 FL (80.0-100.0); MEAN CORPUSCULAR HEMOGLOBIN 21.9 PG (27.0-34.0); MEAN PLATELET VOLUME 10.6 FL (7.0-11.0); MONO % 6.8 % (0.0-8.0); MONOCYTE # 0.7 TH/MM3 (0-0.9); NEUT % 74.9 % (16.0-70.0); PLATELET COUNT 200 TH/MM3 (150-450); RED CELL DISTRIBUTION WIDTH 16.1 % (11.6-17.2); WHITE BLOOD COUNT 9.6 TH/MM3 (4.0-11.0)
[2018-01-30 16:15] LABS: ALT (GPT) 112 U/L (12-78); AST (GOT) 361 U/L (15-37); BICARBONATE 26.7 MEQ/L (21.0-32.0); BLOOD UREA NITROGEN 10 MG/DL (7-18); CALCIUM 8.3 MG/DL (8.5-10.1); CHLORIDE 104 MEQ/L (98-107); CREATININE 1.14 MG/DL (0.60-1.30); GLOMERULAR FILTRATION RATE 72 ML/MIN (>89); GLUCOSE,RANDOM 100 MG/DL (74-106); SODIUM (NA) 141 MEQ/L (136-145)
[2018-01-30 16:46] LABS: ALKALINE PHOSPHATASE 44 U/L (45-117); TOTAL BILIRUBIN ADULT 1.1 MG/DL (0.2-1.0)
[2018-01-30] MEDS ORDERED: POTASSIUM CHLORIDE 20 MEQ CONTROLLED RELEASE TAB PO ONE (18:45)
[2018-01-31] VITALS (14 sets, daily range): BP systolic 137–170; BP diastolic 89–104; PULSE 38–62; RESP 6–24; TEMP 97.9–99.4; O2SAT 97–100
[2018-01-31] MEDS: CHLORHEXIDINE GLUCONATE 2 % 1 PACK (2 CLOTHS) TOP SCH (04:00)
[2018-01-31] MEDS: SODIUM CHLOR 0.9% 1000 ML INJ 1,000 ML IV SCH ×2 (06:47→18:17)
[2018-01-31] MEDS: DOCUSATE SODIUM 50 MG/SENNA 8.6 MG TAB PO SCH ×2 (09:00→20:08)
[2018-01-31] MEDS: ENOXAPARIN SODIUM 40 MG/0.4 ML SYRINGE SQ SCH (09:06)
[2018-01-31] MEDS: SODIUM CHLORIDE 0.9% FLUSH 10 ML FLUSH IV FLUSH SCH ×2 (09:07→20:09)
[2018-01-31] MEDS ORDERED: CHLORHEXIDINE GLUCONATE 2 % 1 PACK (2 CLOTHS)(extra cloths) TOPICAL PRN (09:45)
[2018-01-31] MEDS: ONDANSETRON ODT 4 MG TAB PO PRN ×2 (14:45→20:08)
[2018-01-31 15:38] LABS: BICARBONATE 17.5 MEQ/L (21.0-32.0); CALCIUM 8.7 MG/DL (8.5-10.1); CREATININE 0.95 MG/DL (0.60-1.30); DIRECT BILIRUBIN ADULT 0.1 MG/DL (0.0-0.2); INDIRECT BILIRUBIN 0.9 MG/DL (0.0-0.8); TOTAL PROTEIN 6.6 GM/DL (6.4-8.2)
--- NOTE | 2018-01-31 18:15 | HHI.PR ---
Subjective Remarks No new complaints. Objective Vitals Vital Signs Date Time Temp Pulse Resp B/P (MAP) Pulse Ox O2 Delivery O2 Flow Rate FiO2 01/31/18 18:00 40 01/31/18 16:00 99.4 41 12 164/104 (124) 98 01/31/18 16:00 41 01/31/18 15:55 12 01/31/18 14:00 46 01/31/18 12:00 98.9 59 20 155/101 (119) 98 01/31/18 12:00 59 01/31/18 10:00 62 01/31/18 08:00 98.6 62 24 153/95 (114) 97 01/31/18 08:00 62 01/31/18 06:00 47 01/31/18 04:00 51 01/31/18 04:00 98.4 51 13 137/91 (106) 98 01/31/18 02:00 47 01/31/18 00:00 48 01/31/18 00:00 97.9 48 12 137/89 (105) 98 01/30/18 22:00 55 01/30/18 20:00 98.2 58 21 152/93 (112) 98 01/30/18 20:00 58 Result Diagram: 01/30/18 1414 01/31/18 1445 Imaging Last Impressions Abdomen X-Ray 01/31/18 0000 Signed Impressions: CONCLUSION: Negative examination. Head CT 01/28/18 0011 Signed Impressions: CONCLUSION: 1. No acute intracranial abnormalities. Chest X-Ray 01/28/18 0011 Signed Impressions: CONCLUSION: No active disease. Objective Remarks GENERAL: This is a well-nourished, well-developed patient, in no apparent distress. CARDIOVASCULAR: Regular rate and rhythm without murmurs, gallops, or rubs. RESPIRATORY: Clear to auscultation. Breath sounds equal bilaterally. No wheezes , rales, or rhonchi. GASTROINTESTINAL: Abdomen soft, non-tender, nondistended. Normal active bowel sounds MUSCULOSKELETAL: Extremities without clubbing, cyanosis, or edema. NEURO: Alert & Oriented x4 to person, place, time, situation. Moves all ext x4 A/P Problem List: (1) Acute psychosis ICD Codes: F23 - Brief psychotic disorder Status: Acute Plan: 1. acute psychosis. no hx mental illness reported. hx polysubstance abuse taking cocaine/benzos and "suboxone" Pt severely agitated and fighting with police and hospital staff on admission Was restrained and sedated Severe Rhabdomyolysis elevated cr and lft due to rhabdo. - psychiatry following off precedex gtt on ivf with bicarb gtt. monitor ck/cr. convert to NS prn ativan ordered removed restraints and will observe diet ordered. - await reevaluation by Psychiatry 02/01/18 to possibly remove Ng Act - repeat CK, BMP in AM - anticipate discharge in 2-3 days. (2) Polysubstance abuse ICD Codes: F19.10 - Other psychoactive substance abuse, uncomplicated Status: Acute Plan: - see above (3) Rhabdomyolysis ICD Codes: M62.82 - Rhabdomyolysis Status: Acute Plan: - see above (4) Cocaine abuse ICD Codes: F14.10 - Cocaine abuse, uncomplicated Status: Acute Plan: - see above Problem Qualifiers (1) Rhabdomyolysis: Qualified Codes: M62.82 - Rhabdomyolysis James Thomas DO Jan 31, 2018 18:15
--- NOTE | 2018-01-31 18:55 | RADRPT ---
EXAM DATE: 01/31/2018 6:43 PM EDT AGE/SEX: 37 years / Male INDICATIONS: Upper abdominal pain. Pain that started today. CLINICAL DATA: This is the patient's initial encounter. Patient reports that signs and symptoms have been present for 1 day and indicates a pain score of 5/10. MEDICAL/SURGICAL HISTORY: Hypertension. None. COMPARISON: No prior [facility] exams available for comparison. FINDINGS: The abdominal bowel gas pattern is normal. No abnormal masses, calcifications, or organomegaly is s een. The osseous structures are unremarkable. CONCLUSION: Negative examination. Electronically signed by: Ari Pelaez MD 01/31/2018 6:53 PM EDT
[2018-01-31] MEDS: ACETAMINOPHEN/HYDROcodone 325 MG/5 MG TAB PO PRN (20:08)
[2018-01-31] MEDS: HYDROmorphone HCL PF 2 MG/ML VIAL IV PUSH PRN (21:58)
[2018-02-01] VITALS: BP 130/70; PULSE 41; RESP 11; RESP 16; TEMP 99.2; O2SAT 100
[2018-02-01] MEDS: ACETAMINOPHEN/HYDROcodone 325 MG/5 MG TAB PO PRN ×2 (01:27→12:59)
[2018-02-01 04:00] VITALS: BP 142/89; PULSE 50; RESP 17; TEMP 99; O2SAT 96
[2018-02-01] MEDS ORDERED: CHLORHEXIDINE GLUCONATE 2 % 1 PACK (2 CLOTHS)(taper/protocol) TOPICAL SCH (04:00)
[2018-02-01] MEDS: HYDROmorphone HCL PF 2 MG/ML VIAL IV PUSH PRN ×3 (04:03→15:50)
[2018-02-01 08:00] VITALS: BP 138/71; PULSE 78; RESP 18; TEMP 98.1; O2SAT 97
[2018-02-01] MEDS: ENOXAPARIN SODIUM 40 MG/0.4 ML SYRINGE SQ SCH (10:02)
[2018-02-01] MEDS: DOCUSATE SODIUM 50 MG/SENNA 8.6 MG TAB PO SCH (10:02)
[2018-02-01] MEDS: SODIUM CHLORIDE 0.9% FLUSH 10 ML FLUSH IV FLUSH SCH (10:03)
[2018-02-01 11:00] LABS: BICARBONATE 17.9 MEQ/L (21.0-32.0); CALCIUM 8.8 MG/DL (8.5-10.1); CREATININE 1.02 MG/DL (0.60-1.30)
[2018-02-01 12:00] VITALS: BP 139/88; PULSE 53; RESP 18; TEMP 98.5; O2SAT 98
[2018-02-01 13:39] VITALS: O2SAT 98
--- NOTE | 2018-02-01 14:31 | HHI.PYPN ---
Subjective Remarks I have seen and examined this patient today for psychiatric reevaluation. Discussed the case with nursing charge and also with medical history Syl. On psychiatric evaluation today the patient is calm, cooperative and pleasant. The patient reports that he cannot understand how he could become so psychotic and aggressive. He thinks that may be some drugs were introduced and in his drinks. He says that he has being very stressed at work and this days, he has been using more drugs that he, especially the street Xanax and cocaine, to release this distress. At this moment the patient reports good mood, he is future oriented, he says that he is motivated to be discharged and go back to work. 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 He denies suicidal enemas ideation, he denies visual and auditory hallucinations. He is logical coherent and relevant. Oriented 3. No agitation or aggressive behavior present at this moment. Review of Systems Constitutional: DENIES: Diaphoretic episodes, Fatigue, Fever, Weight gain, Weight loss, Chills, Dizziness, Change in appetite, Night Sweats Endocrine: DENIES: Heat/cold intolerance, Polydipsia, Polyuria, Polyphagia Eyes: DENIES: Blurred vision, Diplopia, Eye inflammation, Eye pain, Vision loss , Photosensitivity, Double Vision Ears, nose, mouth, throat: DENIES: Tinnitus, Hearing loss, Vertigo, Nasal discharge, Oral lesions, Throat pain, Hoarseness, Ear Pain, Running Nose, Epistaxis, Sinus Pain, Toothache, Odynophagia Respiratory: DENIES: Apneas, Cough, Snoring, Wheezing, Hemoptysis, Sputum production, Shortness of breath Gastrointestinal: DENIES: Abdominal pain, Black stools, Bloody stools, Constipation, Diarrhea, Nausea, Vomiting, Difficulty Swallowing, Anorexia Genitourinary: DENIES: Sexual dysfunction, Urinary frequency, Urinary incontinence, Urgency, Hematuria, Dysuria, Nocturia, Penile Discharge, Testicular Pain, Testicular Swelling Musculoskeletal: DENIES: Joint pain, Muscle aches, Stiffness, Joint Swelling, Back pain, Neck pain Integumentary: DENIES: Abnormal pigmentation, Nail changes, Pruritus, Rash Hematologic/lymphatic: DENIES: Bruising, Lymphadenopathy Immunologic/allergic: DENIES: Eczema, Urticaria Neurologic: DENIES: Abnormal gait, Headache, Localized weakness, Paresthesias, Seizures, Speech Problems, Tremor, Poor Balance Psychiatric: DENIES: Anxiety, Confusion, Mood changes, Depression, Hallucinations, Agitation, Suicidal Ideation, Homicidal Ideation, Delusions Mental Status Examination Appearance: Disheveled, Other (Restrained in four-point) Consciousness: Alert Orientation: x4 Motor Activity: Normal gait Speech: Unremarkable Language: Adequate Fund of Knowledge: Adequate Attention and Concentration: Adequate Memory: Unremarkable Mood: Appropriate Affect: Appropriate Thought Process & Associations: Intact Thought Content: Appropriate Hallucination Type: None Delusion Type: None Suicidal Ideation: No Suicidal Plan: No Suicidal Intention: No Homicidal Ideation: No Homicidal Plan: No Homicidal Intention: No Insight: Adequate Judgment: Adequate Results Labs Test 01/31/18 14:45 02/01/18 09:54 Blood Urea Nitrogen 6 MG/DL 6 MG/DL Creatinine 0.95 MG/DL 1.02 MG/DL Random Glucose 88 MG/DL 137 MG/DL Total Protein 6.6 GM/DL Albumin 3.0 GM/DL Calcium Level 8.7 MG/DL 8.8 MG/DL Alkaline Phosphatase 45 U/L Aspartate Amino Transf (AST/SGOT) 352 U/L Alanine Aminotransferase (ALT/SGPT) 129 U/L Total Bilirubin 1.0 MG/DL Direct Bilirubin 0.1 MG/DL Sodium Level 141 MEQ/L 136 MEQ/L Potassium Level 5.5 MEQ/L 4.0 MEQ/L Chloride Level 110 MEQ/L 107 MEQ/L Carbon Dioxide Level 17.5 MEQ/L 17.9 MEQ/L Anion Gap 14 MEQ/L 11 MEQ/L Estimat Glomerular Filtration Rate 89 ML/MIN 82 ML/MIN Indirect Bilirubin 0.9 MG/DL Total Creatine Kinase 17861 U/L 8798 U/L Creatine Kinase MB 6.8 NG/ML 1.1 NG/ML Creatine Kinase MB % 0.0 % 0.0 % Date/Time Source Procedure Growth Status 01/28/18 13:06 Blood Peripheral Aerobic Blood Culture - Preliminary NO GROWTH IN 4 DAYS Resulted 01/28/18 13:06 Blood Peripheral Anaerobic Blood Culture - Preliminary NO GROWTH IN 4 DAYS Resulted 01/28/18 04:10 Urine Catheterized Urine Urine Culture - Final NO GROWTH IN 48 HOURS. Complete Vitals/IOs Vital Signs Date Time Temp Pulse Resp B/P (MAP) Pulse Ox O2 Delivery O2 Flow Rate FiO2 02/01/18 13:39 98 21 02/01/18 12:00 98.5 53 18 139/88 (105) Intake and Output 02/01/18 02/01/18 02/02/18 08:00 16:00 00:00 Output Total 0 ml Balance 0 ml Assessment & Plan Problem List: (1) Unspecified psychosis ICD Codes: F29 - Unspecified psychosis not due to a substance or known physiological condition Assessment & Plan: At the moment of the psychiatric evaluation the patient does not present any neuropsychiatric symptoms that requires immediate psychiatric intervention, the patient denies symptomatology of depression, anxiety, nathan and psychosis. The patient denies suicidal and homicidal ideation. He denies visual and auditory hallucinations. No agitation, no behavioral dysregulation, no aggressive behavior are present. He is logical, coherent and relevant, oriented 3. Able to clarify the recent overdose was accidental and no secondary to suicidal attempt. He does not meet criteria for involuntary psychiatric admission. Support, motivation and psychoeducation provided. Patient was widely oriented about the importance of keeping himself sober and avoiding drugs. Ng act will be lifted Assessment & Plan Estimated LOS: days Justification for Cont. Inpt. No admission indicated Alberto Gunderson MD Feb 01, 2018 14:31
--- NOTE | 2018-02-01 15:28 | HHI.DS ---
Discharge Summary Admission Date Jan 28, 2018 at 04:21 Discharge Date: Feb 01, 2018 Admitting Diagnosis psychosis; metabolic/lactic acidosis; rhabdomyolysis; BA (1) Acute psychosis Diagnosis: Principal ICD Codes: F23 - Brief psychotic disorder Status: Acute (2) Polysubstance abuse Diagnosis: Principal ICD Codes: F19.10 - Other psychoactive substance abuse, uncomplicated Status: Acute (3) Rhabdomyolysis Diagnosis: Principal ICD Codes: M62.82 - Rhabdomyolysis Status: Acute (4) Cocaine abuse Diagnosis: Principal ICD Codes: F14.10 - Cocaine abuse, uncomplicated Status: Acute Consultants Dr. Alberto Reynolds, Psychiatry Brief History 37-year-old male presents in restraints and after receiving IM ketamine for altered mental status with aggressive behavior. Patient was found by EMS and his home with handcuffs in place agitated and yelling. Patient admitted to substance use but would not specify what he ingested. EMS reports patient was seen in the emergency department earlier in the day. On review of medical records patient was being seen at his family's recommendation for auditory hallucinations. At that time of initial evaluation patient had refused workup with imaging studies and lab work and had reported he had had no suicidal or homicidal ideation therefore was released in the care of his mother. At this time patient is unable to provide any meaningful information. CBC/BMP: 01/30/18 1414 02/01/18 0954 Significant Findings Laboratory Tests Test 01/30/18 14:14 01/31/18 09:05 01/31/18 14:45 02/01/18 09:54 Hemoglobin 11.9 GM/DL (13.0-17.0) Hematocrit 37.0 % (39.0-51.0) Mean Corpuscular Volume 68.5 FL (80.0-100.0) Mean Corpuscular Hemoglobin 21.9 PG (27.0-34.0) Neutrophils (%) (Auto) 74.9 % (16.0-70.0) Total Protein 6.0 GM/DL (6.4-8.2) Albumin 3.0 GM/DL (3.4-5.0) 3.0 GM/DL (3.4-5.0) Calcium Level 8.3 MG/DL (8.5-10.1) Alkaline Phosphatase 44 U/L (45-117) Aspartate Amino Transf (AST/SGOT) 361 U/L (15-37) 352 U/L (15-37) Alanine Aminotransferase (ALT/SGPT) 112 U/L (12-78) 129 U/L (12-78) Total Bilirubin 1.1 MG/DL (0.2-1.0) Potassium Level 3.1 MEQ/L (3.5-5.1) 5.5 MEQ/L (3.5-5.1) Estimat Glomerular Filtration Rate 72 ML/MIN (>89) 82 ML/MIN (>89) Total Creatine Kinase 18380 U/L (39-308) 93963 U/L (39-308) 8798 U/L (39-308) Blood Urea Nitrogen 6 MG/DL (7-18) 6 MG/DL (7-18) Chloride Level 110 MEQ/L (98-107) Carbon Dioxide Level 17.5 MEQ/L (21.0-32.0) 17.9 MEQ/L (21.0-32.0) Indirect Bilirubin 0.9 MG/DL (0.0-0.8) Creatine Kinase MB 6.8 NG/ML (0.5-3.6) Random Glucose 137 MG/DL (74-106) Imaging Last Impressions Abdomen X-Ray 01/31/18 0000 Signed Impressions: CONCLUSION: Negative examination. Head CT 01/28/18 0011 Signed Impressions: CONCLUSION: 1. No acute intracranial abnormalities. Chest X-Ray 01/28/1810 Signed Impressions: CONCLUSION: No active disease. PE at Discharge GENERAL: This is a well-nourished, well-developed patient, in no apparent distress. CARDIOVASCULAR: Regular rate and rhythm without murmurs, gallops, or rubs. RESPIRATORY: Clear to auscultation. Breath sounds equal bilaterally. No wheezes , rales, or rhonchi. GASTROINTESTINAL: Abdomen soft, non-tender, nondistended. Normal active bowel sounds MUSCULOSKELETAL: Extremities without clubbing, cyanosis, or edema. NEURO: Alert & Oriented x4 to person, place, time, situation. Moves all ext x4 Hospital Course (1) Acute psychosis ICD Codes: F23 - Brief psychotic disorder Status: Acute Plan: 1. acute psychosis. no hx mental illness reported. hx polysubstance abuse taking cocaine/benzos and "suboxone" Pt severely agitated and fighting with police and hospital staff on admission Was restrained and sedated Severe Rhabdomyolysis elevated cr and lft due to rhabdo. - Pt was treated in the ICU utilizine IV precedex and IV bicarb. - Pt tranferred to the Medical Service from [facility] 01/30/18 - Pt followed by psychiatry, Dr. Gunderson. - Pt was reevaluated by Dr. Gunderson 02/01/18 and Ng Act was lifted. - CK spiked at 94K (01/28), 8K (02/01) - AST spiked at 615 (01/29), 352 (02/01) - ALT 118 (01/29), 129 (01/31) - I would have preferred continued hospitalization on IVF for another 1-2 days. - However, pt refused continued hospitalization at this time. - Pt does NOT have a CP PCP. Pt instructed to call [facility] to select PCP. - Pt needs to f/u with PCP in 1 week. - Ideally pt should have repeat BMP, CK, LFTs in one week. These test can be ordered by PCP outpt. - Pt needs to f/u with [facility] in 2-3 days. - Pt to f/u with his Suboxone Physician, Dr. Justina Romero. - Case d/w CP Case Management (02/01). Will arrange to have [facility] Mental Health department reach out to pt to arrange outpt f/u. - I have plainly explained to Mr. Winslow that he needs help with his polysubstance addiction and he should f/u with [facility] Mental [facility]. - I have plainly explained to Mr. Winslow that continued use of cocaine or other illicit narcotics could lead to morbidity, repeat hospitalization, or . - Mr. Winslow voiced understanding. (2) Polysubstance abuse ICD Codes: F19.10 - Other psychoactive substance abuse, uncomplicated Status: Acute Plan: - see above (3) Rhabdomyolysis ICD Codes: M62.82 - Rhabdomyolysis Status: Acute Plan: - see above (4) Cocaine abuse ICD Codes: F14.10 - Cocaine abuse, uncomplicated Status: Acute Plan: - see above Pt Condition on Discharge: Stable Discharge Disposition: Discharge Home Discharge Instructions DIET: Follow Instructions for: As Tolerated, No Restrictions Activities you can perform: Regular-No Restrictions Activities to Avoid: Strenuous Activity Other Activity Instructions: Pt strongly advised NOT to use cocaine or other illicit drugs. Pt cautioned that continued use of cocaine could lead to rehospitalizaiton or . Follow up Referrals: PCP Follow-up - 1 Week with CP PCP Psychiatry Adult - 2-3 Days with [facility] Psychiatry Adult - 3-[address] Cirilo Romero Continued Medications: Buprenorphine-Naloxone Sublingual Film (Suboxone Sublingual Film) 8-2 Mg Film 1 FILM SL DAILY, FILM Unique ID number required: Discontinued Medications: Clindamycin (Clindamycin) 150 Mg Cap 300 MG PO TID for Infection for 10 Days, #60 CAP 0 Refills Hydrocodone-Acetaminophen (Hydrocodone-Acetaminophen) 5-325 mg Tab 1 TAB PO Q4H PRN for PAIN, TAB 0 Refills [subutex] () James Thomas DO Feb 01, 2018 15:28
--- NOTE | 2018-02-01 15:44 | HHI.DCPOC ---
Discharge Care Plan Diagnosis: (1) Acute psychosis (2) Cocaine abuse (3) Rhabdomyolysis (4) Polysubstance abuse Goals to Promote Your Health * To prevent worsening of your condition and complications * To maintain your health at the optimal level Directions to Meet Your Goals Take your medications as prescribed Follow your dietary instruction Follow activity as directed Keep your appointments as scheduled Take your immunizations and boosters as scheduled If your symptoms worsen call your PCP, if no PCP go to Urgent Care Center or Emergency Room Smoking is Dangerous to Your Health. Avoid second hand smoke Call the 24-hour hour crisis hotline for domestic abuse at - I have plainly explained to Mr. Winslow that he needs help with his polysubstance addiction and he should f/u with [facility] Mental [facility]. - I have plainly explained to Mr. Winslow that continued use of cocaine or other illicit narcotics could lead to morbidity, repeat hospitalization, or . - Mr. Winslow voiced understanding. - f/u with [facility] PCP in 1 week - f/u with [facility] in 2-3 days - f/u with Suboxone Physician, Dr. Justina Romero, in 3-5 days. James Thomas DO Feb 01, 2018 15:44
[2018-02-01 16:00] VITALS: BP 156/91; PULSE 60; RESP 18; TEMP 98.1; O2SAT 98
== END 2018-02-01 17:45 | disposition home or self-care (01) | DRG 885 ==
LOC: NEPC → NEDA 04:21 → HIMW 06:50 → N06A 02-01 01:54
PROVIDERS: ADMIT Hospitalist; ATTEND Hospitalist
DX: F23 Brief psychotic disorder (principal); N17.9 Acute kidney failure, unspecified; E87.2 Acidosis; M62.82 Rhabdomyolysis; F14.129 Cocaine abuse with intoxication, unspecified; F19.10 Other psychoactive substance abuse, uncomplicated; I10 Essential (primary) hypertension; K59.00 Constipation, unspecified; F17.210 Nicotine dependence, cigarettes, uncomplicated; G89.29 Other chronic pain; M54.9 Dorsalgia, unspecified; Z78.1 Physical restraint status
CPT/HCPCS: 70450; 71045; 74018; 76937; 80048; 80053; 80076; 80307; 81001; 82140; 82550; 82552; 82800; 83605; 83735; 84100; 84443; 84484; 85025; 85610; 85730; 87040; 87086; 87641; 93005; 96361; 96374; 96375; J1170; J1650; J2060; J2270; J3486; J7030; J7070

== ENCOUNTER 2018-07-21 21:12 | Inpatient (IN) ==
[2018-07-21] MEDS ORDERED: HYDROmorphone PF Inj 4 MG/ML Ampul IM ONE (21:29)
[2018-07-21] MEDS ORDERED: Ketamine Inj 500 MG/10 ML Vial IM STA (21:32)
--- NOTE | 2018-07-21 21:48 | ED ---
HPI General Chief complaint: Abdominal Pain Stated complaint: herina Time Seen by Provider: 07/21/18 21:23 History of Present Illness HPI narrative: Patient is a 30-year-old male with a known inguinal hernia he has been here in our ER on the July 10 was supposed to follow with Dr. Casiano he says he has an appointment with Dr. Casiano to surgically corrected. Last time was in the ER was necessary to conscious sedate him and reduced it manually then he was discharged he says he has a surgery scheduled for the of this month which is 8 days away. Patient now is here with pain right lower inguinal area with obvious significant swelling in the scrotum and testicle in the inguinal canal as well. He says he is on Suboxone and he will not be able to have pain management from normal narcotics and he is asking for propofol by name. He is asking to be consciously sedated with propofol he is refusing to let me manually try to reproduce it without him having some kind of sedation patient has history of psychiatric illness as well as this known hernia that is been going on for months. He is in no apparent distress and is sound asleep after I examined him and return Related Data Home Medications Medication Instructions Recorded Confirmed gabapentin 100 mg PO DAILY 07/22/18 07/29/18 meloxicam [Mobic] 15 mg PO DAILY 07/22/18 07/29/18 oxymorphone 10 mg PO Q6HR 07/22/18 07/29/18 clonidine 07/29/18 Previous Rx's Medication Instructions Recorded cephalexin [Keflex] 500 mg PO Q8H 7 Days #21 cap 07/29/18 sulfamethoxazole-trimethoprim 1 tab PO Q12H #14 tab 07/29/18 [Bactrim DS] Allergies Allergy/AdvReac Type Severity Reaction Status Date / Time No Known Allergies Allergy Verified 07/21/18 21:26 Review of Systems ROS: all other systems reviewed are negative [facility] Medical History Medical History Abscess (Acute) History of chronic back pain (Acute) History of hypertension (Acute) IVDU (intravenous drug user) (Acute) Inguinal hernia (Acute) Surgical History Surgical History History of hernia surgery (Acute) No history of previous surgery (Acute) Social History Social History Substance History: Active Abuse Second Hand Smoke Exposure: Yes Smoking Status: Current every day smoker Tobacco Type: Cigarettes How Often Do You Have a Drink Containing Alcohol: Monthly or less Recent Travel in [place] within the Last 8 Weeks: No Recent Out of Country Travel within the Last 8 Weeks: No Substance Abuse Detail Opiates: Substance Use Status: Active Route Used Substance Abuse: Intravenously Immunization History Tetanus Immunization: Unsure Exam Narrative Exam Narrative: GENERAL: pt appear to be in pain , holding his groin right sided SKIN: Warm and dry. HEAD: Atraumatic. Normocephalic. EYES: Pupils equal and round. No scleral icterus. No injection or drainage. ENT: No nasal bleeding or discharge. Mucous membranes pink and moist. NECK: Trachea midline. No JVD. : Large hard firm mass protruding from right inguinal area tender to palpation not reducible with 10 minutes of constant pressure by this MD ( attempt manual reduction , then called surgery Dr Chun bedside) lump is also in scrotum right and is of orange size protrusion, very pain ful when manipulated CARDIOVASCULAR: Regular rate and rhythm. RESPIRATORY: No accessory muscle use. Clear to auscultation. Breath sounds equal bilaterally. GASTROINTESTINAL: Abdomen soft, non-tender, nondistended. Hepatic and splenic margins not palpable. MUSCULOSKELETAL: Extremities without clubbing, cyanosis, or edema. No obvious deformities. NEUROLOGICAL: Awake and alert. No obvious cranial nerve deficits. Motor grossly within normal limits. Five out of 5 muscle strength in the arms and legs. Normal speech. PSYCHIATRIC: Appropriate mood and affect; insight and judgment normal. Procedures Procedural Sedation Indications: other (manual hernia reduction attempt bedside x 2 ) ASA Class: ASA 1 Normal Healthy Patient Preparation: cardiac surgeon applied Ketamine: IV (100) Ketamine dose (mg): 100 IV Propofol Dose (mgs): 100 Patient Tolerated Procedure: well Complications: none Additional Comments: first attempt.. 2 hours later second procedural sedation for Dr Chun surgeon as he attempts manula reduction , Propofol ordered by him he wants only propofol and it take 500mg propofol IV without complete success I added 100 mg Ketamine and pt slightly more sedate , Dr Chun is unable to reduce hernia, Course Hospital Course: i attempted an manual reduction of his inguinal hernia and was unsuccessful. Propofol and ketamine but after 13 minutes of constant pressure no movement of bowel that is firm in groin Initial Documented Vital Signs Temperature 98.3 F 07/21/18 21:16 Pulse Rate 74 07/21/18 21:16 Respiratory Rate 16 07/21/18 21:16 Blood Pressure 159/106 H 07/21/18 21:16 Pulse Oximetry 100 07/21/18 21:16 Last Documented Vital Signs Temperature 98.7 F 07/22/18 08:00 Pulse Rate 54 L 07/22/18 08:30 Respiratory Rate 16 07/22/18 08:30 Blood Pressure 160/103 H 07/22/18 08:30 Pulse Oximetry 100 07/22/18 08:30 Medical Decision Making MDM Narrative Medical decision making narrative: pt has severe pain and manual reduction under moderate sedation is unsuccessful by this MD .. I page Surgery and Order CT .. pt has manual reduction attempted by the Surgeon Dr Chun bedside under second procedural sedation by this MD Second attempt is also negative . Pt admitted to the OR Dr Chun to take to surgery to reduce open. Medical Screen Exam Complete: Yes Emergency Medical Condition: Yes Differential Diagnosis Differential Diagnosis: incarcerated hernia vs estangulated hernia vs tumor testicular , vs hydroceole or other Lab Data Result diagrams: 07/21/18 22:30 07/21/18 22:30 Lab Results 07/21/18 07/21/18 07/21/18 Range/Units 22:30 22:30 22:30 CBC w Diff Slide review pending WBC 10.5 (4.0-11.0) th/mm3 RBC 6.34 H (4.50-5.90) mil/mm3 Hgb 13.5 (13.0-17.0) gm/dL Hct 43.1 (39.0-51.0) % MCV 67.9 L (80.0-100.0) fL MCH 21.3 L (27.0-34.0) pg MCHC 31.4 L (32.0-36.0) % RDW 15.3 (11.6-17.2) % Plt Count 228 D (150-450) th/mm3 MPV 10.0 (7.0-11.0) fL Neut % (Auto) 73.1 H (16.0-70.0) % Lymph % (Auto) 16.1 (9.0-44.0) % Ocean % (Auto) 8.5 H (0.0-8.0) % Eos % (Auto) 1.3 (0.0-4.0) % Baso % (Auto) 1.0 (0.0-2.0) % Neut # (Auto) 7.7 (1.8-7.7) th/mm3 Lymph # (Auto) 1.7 (1.0-4.8) th/mm3 Ocean # (Auto) 0.9 (0.0-0.9) th/mm3 Eos # (Auto) 0.1 (0.0-0.4) th/mm3 Baso # (Auto) 0.1 (0.0-0.2) th/mm3 WBC Differential . Diff Scan Auto diff confirmed Differential Comment . Dimorphic RBCs Present H (None) Ovalocytes 1+ H (None) PT 10.2 (9.8-11.6) sec INR 1.0 Ratio Sodium 140 (136-145) meq/L Potassium 3.6 (3.5-5.1) meq/L Chloride 104 (98-107) meq/L Carbon Dioxide 26.1 (21.0-32.0) meq/L Anion Gap 10 (5-15) meq/L BUN 13 (7-18) mg/dL Creatinine 1.10 (0.60-1.30) mg/dL Estimated GFR 75 L (>89) mL/min Random Glucose 92 (74-106) mg/dL Lactic Acid (0.4-2.0) mmol/L Calcium 10.0 (8.5-10.1) mg/dL Total Bilirubin 1.8 H (0.2-1.0) mg/dL AST 27 (15-37) U/L ALT 24 (12-78) U/L Alkaline Phosphatase 68 (45-117) U/L Total Protein 9.5 H (6.4-8.2) g/dL Albumin 4.5 (3.4-5.0) g/dL 07/22/18 Range/Units 01:00 CBC w Diff WBC (4.0-11.0) th/mm3 RBC (4.50-5.90) mil/mm3 Hgb (13.0-17.0) gm/dL Hct (39.0-51.0) % MCV (80.0-100.0) fL MCH (27.0-34.0) pg MCHC (32.0-36.0) % RDW (11.6-17.2) % Plt Count (150-450) th/mm3 MPV (7.0-11.0) fL Neut % (Auto) (16.0-70.0) % Lymph % (Auto) (9.0-44.0) % Ocean % (Auto) (0.0-8.0) % Eos % (Auto) (0.0-4.0) % Baso % (Auto) (0.0-2.0) % Neut # (Auto) (1.8-7.7) th/mm3 Lymph # (Auto) (1.0-4.8) th/mm3 Ocean # (Auto) (0.0-0.9) th/mm3 Eos # (Auto) (0.0-0.4) th/mm3 Baso # (Auto) (0.0-0.2) th/mm3 WBC Differential Diff Scan Differential Comment Dimorphic RBCs (None) Ovalocytes (None) PT (9.8-11.6) sec INR Ratio Sodium (136-145) meq/L Potassium (3.5-5.1) meq/L Chloride (98-107) meq/L Carbon Dioxide (21.0-32.0) meq/L Anion Gap (5-15) meq/L BUN (7-18) mg/dL Creatinine (0.60-1.30) mg/dL Estimated GFR (>89) mL/min Random Glucose (74-106) mg/dL Lactic Acid 2.4 H (0.4-2.0) mmol/L Calcium (8.5-10.1) mg/dL Total Bilirubin (0.2-1.0) mg/dL AST (15-37) U/L ALT (12-78) U/L Alkaline Phosphatase (45-117) U/L Total Protein (6.4-8.2) g/dL Albumin (3.4-5.0) g/dL Imaging Data Radiologist's impression: Abdomen/Pelvis CT 07/22/18 00:27 CONCLUSION: 1. Bowel containing right inguinal hernia likely causing a distal small bowel obstruction with distention and gastric dilatation. Trace free fluid. No free air. Discharge Plan Discharge Disposition Patient Disposition: 30 Still Patient Discharge Order Discharge Orders: Discharge Order (Routine); Ordered 07/22/18 Ordered By: Hernando Chun General Surgery Clear for Discharge (Routine); Ordered 07/22/18 Ordered By: Hernando Chun Physicians Team ED Provider: Wing Underwood Primary Care Provider: UNKNOWN, Attending Provider: Hernando Chun Status ED Status: Left Department Discharge Information Discharge Date/Time: 07/22/18 04:40
[2018-07-21] MEDS ORDERED: Propofol Inj 500 MG/50 ML Vial IV.PUSH ONE (22:09)
[2018-07-21] MEDS ORDERED: Ketamine Inj 50 MG/5 ML Syringe IV.PUSH ONE (22:10)
[2018-07-21] MEDS ORDERED: Ketamine Inj 500 MG/10 ML Vial IV.PUSH ONE (22:45)
[2018-07-21] MEDS ORDERED: Diatrizoate Meglum/Diatrizoate Sod Liq 9 ML UDC PO ONE ×2 (23:06→23:25)
[2018-07-21] MEDS ORDERED: Famotidine PF Inj 20 MG/2 ML Vial IV.PUSH ONE (23:20)
[2018-07-21] MEDS ORDERED: HYDROmorphone PF Inj 2 MG/ML Vial IV.PUSH ONE (23:20)
[2018-07-21 23:49] LABS: Baso # (Auto) 0.1 th/mm3 (0.0-0.2); Eos # (Auto) 0.1 th/mm3 (0.0-0.4); Eos % (Auto) 1.3 % (0.0-4.0); Hematocrit 43.1 % (39.0-51.0); Hemoglobin 13.5 gm/dL (13.0-17.0); Lymph # (Auto) 1.7 th/mm3 (1.0-4.8); Lymph % (Auto) 16.1 % (9.0-44.0); Mean Corpuscular HGB Conc 31.4 % (32.0-36.0); Mean Corpuscular Hemoglobin 21.3 pg (27.0-34.0); Mean Corpuscular Volume 67.9 fL (80.0-100.0); Mono # (Auto) 0.9 th/mm3 (0.0-0.9); Mono % (Auto) 8.5 % (0.0-8.0); Neut # (Auto) 7.7 th/mm3 (1.8-7.7); Neut % (Auto) 73.1 % (16.0-70.0); Platelet Count 228 th/mm3 (150-450); Red Blood Count 6.34 mil/mm3 (4.50-5.90); Red Cell Distribution Width 15.3 % (11.6-17.2); White Blood Count 10.5 th/mm3 (4.0-11.0)
[2018-07-21 23:59] LABS: Chloride 104 meq/L (98-107); Potassium 3.6 meq/L (3.5-5.1); Sodium 140 meq/L (136-145)
[2018-07-22 00:03] LABS: Albumin 4.5 g/dL (3.4-5.0); Anion Gap 10 meq/L (5-15); Blood Urea Nitrogen 13 mg/dL (7-18); Carbon Dioxide 26.1 meq/L (21.0-32.0); Glucose,Random 92 mg/dL (74-106)
[2018-07-22 00:04] LABS: Prothrombin Time 10.2 sec (9.8-11.6)
[2018-07-22 00:06] LABS: Alanine Aminotransferase 24 U/L (12-78); Aspartate Aminotransferase 27 U/L (15-37); Glomerular Filtration Rate 75 mL/min (>89)
[2018-07-22 00:08] LABS: Total Protein 9.5 g/dL (6.4-8.2)
[2018-07-22 00:09] LABS: Alkaline Phosphatase 68 U/L (45-117)
[2018-07-22 00:45] LABS: Dimorphic RBC Present; Ovalocytes 1+
[2018-07-22] MEDS ORDERED: HYDROmorphone PF Inj 2 MG/ML Vial IV.PUSH ONE (01:11)
[2018-07-22] MEDS ORDERED: Sod Chloride 0.9% Inj 1,000 ML IV.SIG ONE (01:12)
[2018-07-22] MEDS ORDERED: Propofol Inj 500 MG/50 ML Vial IV.PUSH ONE (01:56)
[2018-07-22] MEDS ORDERED: Ketamine Inj 50 MG/5 ML Syringe IV.PUSH ONE (01:57)
[2018-07-22] MEDS ORDERED: Ketamine Inj 500 MG/10 ML Vial IV.PUSH ONE (02:00)
--- NOTE | 2018-07-22 02:47 | CT ---
EXAM DATE: 07/22/2018 1:00 AM EST AGE/SEX: 38 years / Male INDICATIONS: Hernia. CLINICAL DATA: This is the patient's initial encounter. Patient reports that signs and symptoms have been present for 1 day and indicates a pain score of 5/10. MEDICAL/SURGICAL HISTORY: . Abscess. Inguinal hernia. IVDU. None. ORAL CONTRAST: Partial prescribed oral contrast ingested. RADIATION DOSE: 11.45 CTDI (mGy) COMPARISON: No prior exams available for comparison. TECHNIQUE: Multiple contiguous axial images were obtained through the abdomen and pelvis following b olus infusion of 90 ml Omnipaque 350 (iohexol) nonionic water-soluble contrast as a single exam dos e. Partial prescribed oral contrast ingested. Using automated exposure control and adjustment of the mA and/or kV according to patient size, radiation dose was kept as low as reasonably achievable to o btain optimal diagnostic quality images. DICOM format image data is available electronically for rev iew and comparison. FINDINGS: Lung bases are clear. No acute findings in the liver, spleen, adrenals, kidneys or pancreas. No calci fied gallstones. There is diffuse dilatation of small bowel and mild gastric distention with air-fluid level. There is herniation of bowel into the right inguinal canal which is probably the cause of the apparent small bowel obstruction distally. No free air. No significant free fluid. No acute bony abnormality. CONCLUSION: 1. Bowel containing right inguinal hernia likely causing a distal small bowel obstruction with diste ntion and gastric dilatation. Trace free fluid. No free air. Electronically signed by: Ari Pelaez MD 07/22/2018 1:08 AM EST
[2018-07-22] MEDS ORDERED: Bupivacaine/Epinephrine PF Inj 0.5% 30 ML Vial ONE (04:27)
[2018-07-22] MEDS ORDERED: Bupivacaine Liposomal PF 1.3% Inj 20 ML Vial ONE (04:27)
[2018-07-22] MEDS ORDERED: Metoprolol Tartrate 25 MG Tablet PO ONE (04:52)
[2018-07-22] MEDS ORDERED: Chlorhexidine Gluconate 2% 1 Pack (2 Cloths) TOPICAL ONE (04:52)
[2018-07-22] MEDS ORDERED: Sodium Chlor 0.9% Inj 500 ML IV.SIG SCH (05:00)
[2018-07-22] MEDS ORDERED: Sugammadex Inj 200 MG/2 ML Vial IV.PUSH ONE (07:23)
[2018-07-22] MEDS ORDERED: Lidocaine PF 1% Inj 5 ML Syringe INFILTRATN ONE (07:46)
[2018-07-22] MEDS ORDERED: Neostigmine Inj 5 MG/5 ML Syringe IV.PUSH ONE (07:46)
[2018-07-22] MEDS ORDERED: Succinylcholine Inj 100 MG/5 ML Syringe IV.PUSH ONE (07:46)
--- NOTE | 2018-07-22 08:01 | MP ---
cc: Hernando Chun MD DATE OF OPERATION: 07/22/2018 DATE OF PROCEDURE: 07/22/2018 PREOPERATIVE DIAGNOSIS: Incarcerated right inguinal hernia. POSTOPERATIVE DIAGNOSIS: Incarcerated right inguinal hernia. PROCEDURE: Reduction and repair of incarcerated right inguinal hernia with ProGrip mesh. SURGEON: Hernando Chun MD ANESTHESIA: General endotracheal. OPERATIVE FINDINGS: The patient was found to have a large loop of small intestine down in the scrotum, which was difficult to release. Initially it appeared to be ischemically compromised, but upon release of the hernia, it appeared to pink up and have no evident ongoing compromise of the bowel wall. The patient also was noted to have an extremely thick walled hernia sac extending to the testicle. OPERATIVE PROCEDURE: The patient was brought to the operating room, and after satisfactory general endotracheal anesthesia was obtained, the abdomen was prepped and draped in the usual sterile fashion. Combination of Exparel 0.5% Marcaine with epinephrine and saline was used to inject the skin for local anesthesia. A transverse right inguinal incision was made and carried down sharply through the subcutaneous tissue with the cautery being used for hemostasis. The incision was deepened to the external oblique fascia, which was opened in the direction of its fibers down to and through the external ring. Even under anesthesia, the hernia could not be reduced manually, and thus, the cremasteric fibers were divided with the cautery allowing the sac to be identified. The sac was opened carefully to preserve the underlying structures and then opened completely. Approximately 50-70 mL of bloody fluid was withdrawn. With some degree of difficulty the bowel was reduced out of the hernia sac and initially was seen to be ischemically challenged, but after less than 2 minutes, it appeared to be viable and was placed back within the peritoneal cavity. The hernia sac was divided at its neck with care being taken to preserve the cord structures. The hernia sac was then dissected down to the internal ring where it was suture ligated with a 2-layer closure using running 3-0 Vicryl suture. The remainder of the sac was left in place due to its dense adherence to the spermatic cord. The inguinal floor was cleaned up of adhesions and then the repair was effected using interrupted 0 Vicryl sutures brought between the internal oblique muscle and the shelving edge of the inguinal ligament. The internal ring was recreated. It was seen to be quite widened due to the thick nature of the tissue around it with all the surrounding edema. A piece of ProGrip mesh was placed over the repair and secured anterior to the repair completely by pressing its posterior Vicryl hooks into the surrounding tissues. It was affixed to the pubis with a single suture of 0 Prolene. Another 0 Prolene was brought between the internal oblique muscle and the shelving edge of the inguinal ligament just medial to the internal ring to provide extra support in that area. One gram of Ancef powder was sprinkled over the mesh. Hemostasis was checked for and found to be satisfactory. The external oblique was closed as much as possible, which was approximately half its distance (due to swelling). The closure was with a 3-0 Vicryl running suture. The remainder of the local anesthesia was infiltrated into the surrounding tissues, and the subcutaneous tissue was closed with interrupted 3-0 Vicryl suture and the skin closed with interrupted 4-0 PDS subcuticular stitches. Steri-Strips were applied. The patient was then taken from the operating room in satisfactory condition, having tolerated the procedure without problem. ESTIMATED BLOOD LOSS: Less than 15 mL. The instrument count, sponge count, and needle counts were reported as being correct x 2 at the end of the procedure. MD RICARDO Hampton/az , 07:35 AM , 07:43 AM
--- NOTE | 2018-07-22 09:24 | MH ---
cc: Hernando Chun MD DATE OF ADMISSION: 07/22/2018 ADMISSION DIAGNOSIS: Incarcerated right inguinal hernia. HISTORY OF PRESENT ILLNESS: The patient is a 38-year-old male who has a long history of known right inguinal hernia. Evidently within the last several weeks, he had an incarceration, which was reduced in the emergency department under conscious sedation. The emergency room physician and myself could not reduce it this evening. He is thus admitted for urgent repair. He denies any nausea, vomiting or fever other than one episode of emesis earlier in the day, which was similar to a similar episode of emesis previously. PAST MEDICAL HISTORY: The patient admits to ongoing opioid use. He has been a longtime narcotics user intravenously as well as orally. Other than that, he has no major medical problems requiring hospitalization. FAMILY HISTORY/SOCIAL HISTORY: Noncontributory. REVIEW OF SYSTEMS: Noncontributory. PHYSICAL EXAMINATION: VITAL SIGNS: Blood pressure is 156/97, heart rate 69, respiratory rate 18, temperature is 98.3. GENERAL: The patient is an overall very healthy-appearing man in moderate distress. HEENT: Unremarkable. No lesions, inflammation or scleral icterus. NECK: Supple with no adenopathy or thyromegaly. LUNGS: Clear to percussion and auscultation. HEART: No murmurs or gallops. ABDOMEN: Scaphoid, soft and nontender with no guarding or rebound. There is an obvious very large right inguinal hernia, which is incarcerated and is unable to be reduced despite multiple attempts using propofol up to 500 mg. EXTREMITIES: The patient has obvious scarring from previous intravenous drug use and abscesses. NEUROLOGIC: Grossly intact. IMPRESSION: Incarcerated right inguinal hernia. PLAN: Reduction and repair with mesh. I explained the procedure to him, including the risks of bleeding, infection, anesthesia, recurrence, chronic pain and the possibility of requiring bowel resection at this time or later should the need arise due to compromise of the intestine. He expresses understanding and is agreeable to the procedure. MD RICARDO Hampton/[email or web address]/rosey , 07:29 AM , 07:35 AM
== END 2018-07-22 08:57 | disposition home or self-care (01) ==
LOC: PHED 21:12 → PHEDA 07-22 03:24
PROVIDERS: ADMIT Surgery; ATTEND Surgery